=== PATIENT | male | born 2000 | race Two or more races ===

== ENCOUNTER 2021-01-25 11:00 | Emergency (ER) | payer OTHER ==
[~2021-01-25] VITALS: Ht 167.6 cm; Wt 127.0 kg
--- NOTE | 2021-01-25 11:03 | NUR ---
symone, denies medical complaint, clearance for booking. On room air, breathing evenly and unlabored. kept comfortable, will continue to monitor accordingly.
[2021-01-25 11:08] VITALS: BP 133/81
--- NOTE | 2021-01-25 11:08 | NUR ---
Patient discharged to home in stable condition. Written and verbal after care instructions given. Patient verbalizes understanding of instruction.
== END 2021-01-25 11:08 ==
LOC: ER 11:04
DX: Z02.89 Encounter for other administrative examinations (principal); I10 Essential (primary) hypertension